=== PATIENT | female | born 1980 | race Caucasian/White ===

== ENCOUNTER 2016-05-27 09:03 | Day surgery (SDC) | payer BC, OTHER ==
[~2016-05-27 09:03] MED LIST: Lactated Ringers 1,000 ML IV SCH; Sodium Chloride 0.9% 10 ML Syringe FLUSH PRN; Sodium Chloride 0.9% 2.5 ML Syringe FLUSH PRN
[2016-05-27] MEDS ORDERED: Bupivacaine 0.25% 10 ML SDV ONE (10:27)
[2016-05-27 10:50] LABS: CHLORIDE,CL 111 mmol/L (98-110); SODIUM,NA 138 mmol/L (136-146)
--- NOTE | 2016-05-27 10:52 | PCM.PREANE ---
Preanesthetic Assessment - Anesthesia/Transfusion/Family Hx Anesthesia History: Prior Anesthesia Without Reaction Type of Anesthesia Reaction: Other (see below) (mild PONV) Family History of Anesthesia Reaction: No Transfusion History: No Prior Transfusion(s) - Review of Systems General: No Symptoms Pulmonary: No Symptoms Cardiovascular: No Symptoms Gastrointestinal: No symptoms Neurological: No Symptoms Other: Reports: None - Physical Assessment NPO Status Date: 05/26/16 NPO Status Time: 23:00 O2 Sat by Pulse Oximetry: 100 Respiratory Rate: 16 Vital Signs: Last Vital Signs Temp 37.5 C 05/27/16 09:49 Pulse 64 05/27/16 09:49 Resp 16 05/27/16 09:49 BP 116/69 05/27/16 09:49 Pulse Ox 100 05/27/16 09:49 Height: 1.6 m Weight: 64.41 kg ASA Class: 2 Mental Status: Alert & Oriented x3 Airway Class: Mallampati = 1 Dentition: Reports: Normal Dentition ROM/Head Extension: Full Lungs: Clear to auscultation, Normal respiratory effort Cardiovascular: Regular Rate, Regular Rhythm - Lab Values: Laboratory Last Values WBC 6.41 K/uL (4.0-11.0) 05/27/16 10:15 RBC 4.65 M/uL (4.30-5.90) 05/27/16 10:15 Hgb 14.6 g/dL (12.0-16.0) 05/27/16 10:15 Hct 42.6 % (36.0-46.0) 05/27/16 10:15 MCV 91.6 fL (80.0-98.0) 05/27/16 10:15 MCH 31.4 pg (27.0-32.0) 05/27/16 10:15 MCHC 34.3 g/dL (31.0-37.0) 05/27/16 10:15 RDW Std Deviation 42.0 fl (28.0-62.0) 05/27/16 10:15 RDW Coeff of Tarsha 13 % (11.0-15.0) 05/27/16 10:15 Plt Count 221 K/uL (150-400) 05/27/16 10:15 MPV 9.40 fL (7.40-12.00) 05/27/16 10:15 Neut % (Auto) 59.2 % (48.0-80.0) 05/27/16 10:15 Lymph % (Auto) 32.8 % (16.0-40.0) 05/27/16 10:15 [place] % (Auto) 3.6 % (0.0-15.0) 05/27/16 10:15 Eos % (Auto) 4.1 % (0.0-7.0) 05/27/16 10:15 Baso % (Auto) 0.3 % (0.0-1.5) 05/27/16 10:15 Neut # (Auto) 3.8 K/uL (1.4-5.7) 05/27/16 10:15 Lymph # (Auto) 2.1 K/uL (0.6-2.4) 05/27/16 10:15 [place] # (Auto) 0.2 K/uL (0.0-0.8) 05/27/16 10:15 Eos # (Auto) 0.3 K/uL (0.0-0.7) 05/27/16 10:15 Baso # (Auto) 0.0 K/uL (0.0-0.1) 05/27/16 10:15 Nucleated RBC % 0.0 /100WBC 05/27/16 10:15 Nucleated RBCs # 0 K/uL 05/27/16 10:15 - Allergies Allergies/Adverse Reactions: Allergies Allergy/AdvReac Type Severity Reaction Status Date / Time No Known Allergies Allergy Verified 05/22/16 15:55 - Anesthesia Plan Pre-Op Medication Ordered: None - Acknowledgements Anesthesia Type Planned: General Anesthesia Pt an Appropriate Candidate for the Planned Anesthesia: Yes Alternatives and Risks of Anesthesia Discussed w Pt/Guardian: Yes Pt/Guardian Understands and Agrees with Anesthesia Plan: Yes Additional Comments: hx of narcolepsy, on Concerta PreAnesthesia Questionnaire HEENT History: Reports: None Cardiovascular History: Reports: None Respiratory History: Reports: None Gastrointestinal History: Reports: None Genitourinary History: Reports: None [employer] History: Reports: None Musculoskeletal History: Reports: None Neurological History: Reports: None Psychiatric History: Reports: None Endocrine/Metabolic History: Reports: None Hematologic History: Reports: None Immunologic History: Reports: None Oncologic (Cancer) History: Reports: None Dermatologic History: Reports: None - Past Surgical History Head Surgeries/Procedures: Reports: None HEENT Surgical History: Reports: None Cardiovascular Surgical History: Reports: None Respiratory Surgical History: Reports: None GI Surgical History: Reports: None Female Surgical History: Reports: Other (see below) Other Female Surgeries/Procedures: right salpingectomy Endocrine Surgical History: Reports: None Neurological Surgical History: Reports: None Musculoskeletal Surgical History: Reports: None Oncologic Surgical History: Reports: None - SUBSTANCE USE Smoking Status *Q: Current Every Day Smoker Tobacco Use Within Last Twelve Months: Cigarettes Recreational Drug Use History: No - HOME MEDS Home Medications: Home Meds ALPRAZolam [Xanax] 0.5 mg PO DAILY PRN MDD 1.5 mg 05/22/16 [History] Methylphenidate HCl [Concerta] 27 mg PO DAILY 05/22/16 [History] buPROPion [Wellbutrin XL] 150 mg PO DAILY 05/22/16 [History] - CURRENT (IN HOUSE) MEDS Current Meds: Current Medications Lactated Ringer's (Ringers, Lactated) 1,000 mls @ 125 mls/hr IV ASDIRECTED [facility] Last Admin: 05/27/16 10:00 Dose: 125 mls/hr Sodium Chloride (Saline Flush) 10 ml FLUSH ASDIRECTED PRN PRN Reason: Keep Vein Open Sodium Chloride (Saline Flush) 2.5 ml FLUSH ASDIRECTED PRN PRN Reason: Keep Vein Open Discontinued Medications Bupivacaine HCl (Sensorcaine-Mpf 0.25%) Confirm Administered Dose 20 ml .ROUTE .STK-MED ONE Stop: 05/27/16 10:28 Preanesthetic Assessment - ANESTHESIA/TRANSFUSION/FAMILY HX Family History of Anesthesia Reaction: No - PHYSICAL ASSESSMENT O2 Sat by Pulse Oximetry: 100 RR: 16 Vital Signs: Last Vital Signs Temp 37.5 C 05/27/16 09:49 Pulse 64 05/27/16 09:49 Resp 16 05/27/16 09:49 BP 116/69 05/27/16 09:49 Pulse Ox 100 05/27/16 09:49 Height: 1.6 m Weight: 64.41 kg NPO Status Date: 05/26/16 NPO Status Time: 23:00 - LAB Values: Laboratory Last Values WBC 6.41 K/uL (4.0-11.0) 05/27/16 10:15 RBC 4.65 M/uL (4.30-5.90) 05/27/16 10:15 Hgb 14.6 g/dL (12.0-16.0) 05/27/16 10:15 Hct 42.6 % (36.0-46.0) 05/27/16 10:15 MCV 91.6 fL (80.0-98.0) 05/27/16 10:15 MCH 31.4 pg (27.0-32.0) 05/27/16 10:15 MCHC 34.3 g/dL (31.0-37.0) 05/27/16 10:15 RDW Std Deviation 42.0 fl (28.0-62.0) 05/27/16 10:15 RDW Coeff of Tarsha 13 % (11.0-15.0) 05/27/16 10:15 Plt Count 221 K/uL (150-400) 05/27/16 10:15 MPV 9.40 fL (7.40-12.00) 05/27/16 10:15 Neut % (Auto) 59.2 % (48.0-80.0) 05/27/16 10:15 Lymph % (Auto) 32.8 % (16.0-40.0) 05/27/16 10:15 [place] % (Auto) 3.6 % (0.0-15.0) 05/27/16 10:15 Eos % (Auto) 4.1 % (0.0-7.0) 05/27/16 10:15 Baso % (Auto) 0.3 % (0.0-1.5) 05/27/16 10:15 Neut # (Auto) 3.8 K/uL (1.4-5.7) 05/27/16 10:15 Lymph # (Auto) 2.1 K/uL (0.6-2.4) 05/27/16 10:15 [place] # (Auto) 0.2 K/uL (0.0-0.8) 05/27/16 10:15 Eos # (Auto) 0.3 K/uL (0.0-0.7) 05/27/16 10:15 Baso # (Auto) 0.0 K/uL (0.0-0.1) 05/27/16 10:15 Nucleated RBC % 0.0 /100WBC 05/27/16 10:15 Nucleated RBCs # 0 K/uL 05/27/16 10:15 - ALLERGIES Allergies/Adverse Reactions: Allergies Allergy/AdvReac Type Severity Reaction Status Date / Time No Known Allergies Allergy Verified 05/22/16 15:55
[2016-05-27] MEDS ORDERED: fentaNYL 250 MCG/5 ML SDV ONE (10:58)
[2016-05-27] MEDS ORDERED: Midazolam 1 MG/ML 2 ML SDV ONE (10:58)
[2016-05-27] MEDS ORDERED: Ondansetron 4 MG/2 ML SDV ONE (10:58)
[2016-05-27] MEDS ORDERED: Propofol 200 MG/20 ML SDV ONE (10:58)
[2016-05-27] MEDS ORDERED: Lidocaine 2% 5 ML SDV ONE (10:58)
[2016-05-27] MEDS ORDERED: Rocuronium 10 MG/ML 10 ML Syringe ONE (10:58)
[2016-05-27] MEDS ORDERED: Fluorescein 5 ML Vial ONE (11:10)
[2016-05-27] MEDS ORDERED: Promethazine 12.5 MG Supp RECTAL PRN (12:59)
[2016-05-27] MEDS ORDERED: fentaNYL 100 MCG/2 ML SDV IVPUSH PRN (12:59)
[2016-05-27] MEDS ORDERED: HYDROmorphone 2 MG/ML Syringe ONE (13:36)
[2016-05-27] MEDS ORDERED: diphenhydrAMINE 50 MG/ML SDV ONE (13:52)
[2016-05-27] MEDS ORDERED: Dexamethasone 4 MG/ML 5 ML MDV ONE (13:52)
[2016-05-27] MEDS ORDERED: Ketorolac 30 MG/ML SDV IVPUSH PRN (14:44)
[2016-05-27] MEDS ORDERED: Acetaminophen/oxyCODONE 325-5 MG Tab PO PRN (14:45)
--- NOTE | 2016-05-27 14:58 | PCM.POSTAN ---
POST ANESTHESIA ASSESSMENT - MENTAL STATUS Mental Status: alert, oriented - RESPIRATORY Respiratory Status: respiratory rate WNL, airway patent, O2 saturation stable - CARDIOVASCULAR CV Status: pulse rate WNL, blood pressure stable - GASTROINTESTINAL GI Status: no symptoms - POST OP HYDRATION Hydration Status: adequate & stable
--- NOTE | 2016-05-27 14:59 | PCM.OPNOTE ---
- General Post-Op/Procedure Note Date of Surgery/Procedure: 05/27/16 Operative Procedure(s): Diagnostic laparoscopy. Adhesolysis. Removal of left ovary and tube. Placement of interceed Findings: Left colon adhesed to post uterus. Right ovary normal appearing but retroperitoneal. Left hydrosalpinx. Left ovary with multiple simple appearing cyst almost with appearance of distorted multicystic left ovary Pre Op Diagnosis: Left sided pelvic pain. Left hydrosalpinx Post-Op Diagnosis: Same. Moderate pelvic adhesions. Distorted multicystic left ovary. Left ovary and tube densely adhesed Anesthesia Technique: General ET tube Primary Surgeon: Violet Mullins Pathology: left tube and ovary Fluid Replacement, Intraop: 2,500 EBL in mLs: 10 Complications: Laceration of cervix with tenaculum Condition: Good Free Text/Narrative:: Intake & Output 05/26/16 05/27/16 05/27/16 22:59 06:59 14:59 Output Total 20 Balance -20 Job ID#[id number]
[2016-05-27 16:57] VITALS: BP 116/70
--- NOTE | 2016-05-27 17:23 | PCM48HPAN ---
Post Anesthesia Note - EVALUATION WITHIN 48HRS OF ANESTHETIC Vital Signs in Normal Range: Yes Patient Participated in Evaluation: Yes Respiratory Function Stable: Yes Airway Patent: Yes Cardiovascular Function Stable: Yes Hydration Status Stable: Yes Pain Control Satisfactory: Yes Nausea and Vomiting Control Satisfactory: Yes Mental Status Recovered: Yes
--- NOTE | 2016-05-29 15:01 | OR ---
SURGEON: Violet Mullins DATE OF PROCEDURE: 05/27/2016 PREOPERATIVE HISTORY: This is a 35-year-old female with complaints of pelvic pain. The patient has pelvic pain mostly in the left lower quadrant. The patient underwent imaging studies and was found to have a hydrosalpinx on the left. The patient reports no significant history concerning for endometriosis, adenomyosis, or pelvic infections. As the patient was concerned about left-sided pelvic pain and needing to remove the hydrosalpinx, the patient desired to undergo surgical intervention with a diagnostic laparoscopy and removal of the hydrosalpinx. Prior to procedure, the patient was apprised of the risk of procedure being bleeding, infection, poor wound healing, possible damage to the bowel, bladder, ureters, nerves, blood vessels, or any other adjacent structures. Also it was discussed with patient the risk of general anesthesia and risk of thromboembolic disease. The patient also noted that the risks of possible removal of one or both ovaries if they appear concerning at the time of surgery. Knowing all of the above, the patient still gave consent and signed appropriate consents. PREOPERATIVE DIAGNOSES: 1. Left-sided pelvic pain. 2. Left hydrosalpinx. POSTOPERATIVE DIAGNOSES: 1. Left-sided pelvic pain. 2. Hydrosalpinx. 3. Moderate adhesions. 4. Distorted multicystic left ovary. 5. Left ovary and tube densely adhesed to one another. PROCEDURES PERFORMED: 1. Diagnostic laparoscopy. 2. Adhesiolysis. 3. Removal of left ovary and tube. 4. Placement of Interceed. ANESTHESIA: General endotracheal. ESTIMATED BLOOD LOSS: Approximately 10 mL. FLUIDS: In the OR was 2500 mL of crystalloid. COMPLICATIONS: None known. CONDITION: Good postoperatively. The patient did have her bladder emptied prior to start of procedure with a straight catheter. DESCRIPTION OF PROCEDURE: The patient was taken to the operating room with Venodynes on and in place. The patient was then transferred to the operating room bed. Venodynes were then connected. The patient then underwent general anesthesia with endotracheal intubation. The patient was then placed in the dorsal lithotomy position in the [facility]. Of note, prior to the induction of anesthesia, the Venodynes were active. After [facility], the patient was positioned and the patient was then prepped and draped in the normal sterile fashion. The patient was examined under anesthesia and found to have a normal size what was felt to be anteverted uterus and ovaries felt, palpated, essentially normal on exam though the mass on the left was palpated slightly larger. Afterwards, the patient was then prepped and draped. A speculum was placed in the patient's vagina and a Hulka clamp was placed through the cervical canal and attached to the anterior lip of the cervix. The speculum was removed from the patient's vagina. Gloves were changed and attention then was turned to the patient's abdomen. Where a 5 mm incision was made in the umbilical fold. A Veress needle then was placed in the patient's abdomen at a 90-degree angle, and with the fluid meniscus drop, intraperitoneal placement was noted after 2 pops after placing the Veress needle. The patient's abdomen was insufflated with low opening pressures to again note that intraabdominal placement was correct at this point. After insufflation of the patient's abdomen, a 5 mm trocar and sleeve were then advanced under direct visualization. The trocar was removed and the scope was advanced into the patient's abdomen for direct visualization. The patient was placed in Trendelenburg position. There was difficulty initially trying to identify the uterus secondary to not being able to see it. Once it was noted that the uterus was moving under the bowel it was thought at this point that the bowel was adhesed to the patient's uterus. At this point, a 5 mm trocar and sleeve were then advanced under direct visualization. After infiltration of the skin with local anesthetic. Attention then was turned to the right lower quadrant where the patient had previously had laparoscopic surgery and a 12 mm incision was then made in the skin and then a 12 mm trocar and sleeve were then advanced under direct visualization. At this point, a survey of the patient's abdomen revealed that at this point initially the right ovary was not visualized. The uterus was poorly visualized as it was covered in bowel secondary to the left colon being adhesed to the left adnexa and the posterior surface of the uterus. Attention was turned to the patient's upper abdomen where there was a smooth liver edge. Attention then was turned back to the patient's pelvis and secondary to the significant adhesive disease in the patient's pelvis. A Harmonic instrument with advanced hemostasis was used. The uterus was directed up out of the pelvis and with gentle tension the left colon adhesion was gently taken down with the Harmonic and also with some blunt dissection. Most of the adhesions were noted to be dense and careful attention was used to take the adhesions down secondary to the bowel being in close proximity as it was adhesed with the entire posterior surface of the uterus. With an excellent dissection plane the fundal area was covered and that was attached to the colon was released within the posterior surface in a good dissection plane. The adhesions were released with the Harmonic and also with blunt dissection. The left adnexa was eventually released from the left colon. After removal of adhesions, hemostasis apparently looked decent on the posterior surface of the uterus. At this point, it was attempted to separate the left tube from the left ovary which looked almost impossible. The left ovary and tube were densely adhesed to one another. The left ovary was eventually mobilized. The left ovary appeared distorted and multicystic, but there were no excrescences or vegetations on the ovarian capsule. Ovarian capsule did appear smooth and cyst appeared simple in nature. Prior to the decision to remove the left ovary as it was noted that the left ovary and tube were densely adhesed to one another and the left ovary was significantly distorted, it was decided at this point, that the left ovary and tube would be removed. Attention then was turned to the patient's right adnexa where the right ovary was attempted to be identified. The right ovary was partially identified and there appeared the remainder of the right ovary was noted to be retroperitoneal on the right pelvic sidewall. The ureter was not identified on the right, but the ureter was identified on the left, where the infundibulopelvic ligament was eventually later identified. Once it was noted that the left ureter was diving deep into the pelvis and away from the ovarian fossa and the infundibulopelvic ligament, the infundibulopelvic ligament was grasped, sealed, and divided and multiple bites with the Harmonic on advanced hemostasis. After completely dividing the infundibulopelvic ligament, the ovary and tube were removed after grasping, sealing, and dividing the utero- ovarian ligament. The final grasp with the Harmonic Scalpel was the cornual portion of the tube which was grasped, sealed, and divided. After completely the left adnexa, the EndoCatch bag was deployed through the right lower quadrant port site. The left ovary and tube were removed en bloc in the EndoCatch bag. The trocar and sleeve were then placed back after removing the EndoCatch bag. Attention was turned to the surgical bed, where the pelvis was copiously irrigated. Hemostasis was noted to be excellent on the left pelvic sidewall. There were small bleeders on the uterus, where the adhesions have been taken down bluntly. These areas were made hemostatic with the active Harmonic blade. The pelvis was copiously irrigated again. Hemostasis was noted to be excellent. The right ovary portion that could be seen that was not retroperitoneal was visualized and noted to be within normal limits. After complete inspection and turning the pressure of the gas down, hemostasis still noted to be good, after removing all excess fluid from the patient's pelvis a piece of Interceed was introduced into the pelvic cavity. The Interceed was placed from the uterine fundus to cover the entire posterior of the uterus and also the left adnexa just in case these adhesions were secondary to prior history of just one salpingectomy. Of note, the patient did have prior pelvic surgery, which included what she stated was a laparoscopic salpingectomy. Of course, the uterus was noted to be normal appearing and the right tube was not present secondary to patient's surgical history. After the Interceed was placed, the patient was taken out of Trendelenburg. Gas was turned off. Gas was released and the instruments in the left lower quadrant and right lower quadrant were removed under direct visualization. The excess gas was allowed to escape and the umbilical port site was removed. After removing all instruments from the patient's abdomen, 4-0 Monocryl suture was used to close the laparoscopic skin incisions. It was attempted to close the fascia of the 12 mm port site with an 0 Vicryl on a UR needle. This was done with one stitch and the overlying skin was closed with 4- 0 Monocryl suture. The patient's was cleansed. Steri-Strips were placed. The patient's abdomen was cleansed after drapes were taken down. The patient's cervix was evaluated and was noted to be laceration from the tenaculum that was placed that was made hemostatic with silver nitrate sticks. The patient overall tolerated the procedure well. Sponge, lap, needle, and instrument counts were correct. NEWJEANEOL / MODL /[id number] RHIANNA
== END 2016-05-27 16:50 | disposition home or self-care (01) ==
LOC: MW.SDS 09:03
PROVIDERS: ATTEND Obstetrics & Gynecology
PROC: 0UB14ZZ Excision of Left Ovary, Percutaneous Endoscopic Approach (ICD-10-PCS; principal; 2016-05-27)
PROC: 0UB64ZZ Excision of Left Fallopian Tube, Percutaneous Endoscopic Approach (ICD-10-PCS; 2016-05-27)
DX: N70.11 Chronic salpingitis (principal); D27.1 Benign neoplasm of left ovary; N99.4 Postprocedural pelvic peritoneal adhesions; G47.419 Narcolepsy without cataplexy; F17.210 Nicotine dependence, cigarettes, uncomplicated
CPT/HCPCS: 36415; 58661; 80048; 84703; 85025; 86850; 86900; 86901; 88305; A9270; C1765; J1100; J1170; J1200; J2250; J2405; J3010; J7120; 00840; J2704

== ENCOUNTER 2017-03-03 10:57 | Day surgery (SDC) | payer BC, MEDICAID ==
[~2017-03-03 10:57] MED LIST changes: -Sodium Chloride 0.9% 10 ML Syringe FLUSH PRN; -Sodium Chloride 0.9% 2.5 ML Syringe FLUSH PRN
--- NOTE | 2017-03-03 11:41 | PCM.PREANE ---
Preanesthetic Assessment - Anesthesia/Transfusion/Family Hx Anesthesia History: Prior Anesthesia Without Reaction Family History of Anesthesia Reaction: No Transfusion History: No Prior Transfusion(s) - Review of Systems General: No Symptoms Pulmonary: No Symptoms Cardiovascular: No Symptoms Gastrointestinal: No Symptoms Neurological: No Symptoms Other: Reports: None - Physical Assessment Height: 1.63 m Weight: 58.967 kg ASA Class: 2 Mental Status: Alert & Oriented x3 Airway Class: Mallampati = 2 Dentition: Reports: Normal Dentition ROM/Head Extension: Full Lungs: Clear to Auscultation, Normal Respiratory Effort Cardiovascular: Regular Rate, Regular Rhythm - Allergies Allergies/Adverse Reactions: Allergies Allergy/AdvReac Type Severity Reaction Status Date / Time No Known Allergies Allergy Verified 02/25/17 13:42 - Anesthesia Plan Pre-Op Medication Ordered: None - Acknowledgements Anesthesia Type Planned: MAC Pt an Appropriate Candidate for the Planned Anesthesia: Yes Alternatives and Risks of Anesthesia Discussed w Pt/Guardian: Yes Pt/Guardian Understands and Agrees with Anesthesia Plan: Yes PreAnesthesia Questionnaire HEENT History: Reports: None Cardiovascular History: Reports: None Respiratory History: Reports: None Gastrointestinal History: Reports: None Genitourinary History: Reports: None SERVICE ASSOCIATE History: Reports: None Musculoskeletal History: Reports: None Neurological History: Reports: None Psychiatric History: Reports: Anxiety, Depression, Other (See Below) Other Psychiatric History: Narcolepsy Endocrine/Metabolic History: Reports: None Hematologic History: Reports: None Immunologic History: Reports: None Oncologic (Cancer) History: Reports: None Dermatologic History: Reports: None - Past Surgical History GI Surgical History: Reports: Appendectomy Female Surgical History: Reports: Salpingo-Oophorectomy - SUBSTANCE USE Smoking Status *Q: Current Every Day Smoker Tobacco Use Within Last Twelve Months: Cigarettes Recreational Drug Use History: No - HOME MEDS Home Medications: Home Meds ALPRAZolam [Xanax] 0.5 mg PO DAILY PRN MDD 1.5 mg 05/22/16 [History] Methylphenidate HCl [Concerta] 36 mg PO DAILY 05/22/16 [History] buPROPion [Wellbutrin XL] 150 mg PO DAILY 05/22/16 [History] - CURRENT (IN HOUSE) MEDS Current Meds: Current Medications Lactated Ringer's (Ringers, Lactated) 1,000 mls @ 125 mls/hr IV ASDIRECTED [facility] Last Admin: 03/03/17 11:32 Dose: 125 mls/hr
[2017-03-03] MEDS ORDERED: fentaNYL 100 MCG/2 ML SDV ONE (12:07)
[2017-03-03] MEDS ORDERED: Propofol 200 MG/20 ML SDV ONE (12:07)
[2017-03-03] MEDS ORDERED: Midazolam 1 MG/ML 2 ML SDV ONE (12:07)
--- NOTE | 2017-03-03 13:00 | PCM.OPNOTE ---
- General Post-Op/Procedure Note Date of Surgery/Procedure: 03/03/17 Operative Procedure(s): colonoscopy, attempted Findings: unprepped bowel, colonoscope aborted; [id number] Pre Op Diagnosis: BRBPR Post-Op Diagnosis: Same Anesthesia Technique: Moderate Sedation Primary Surgeon: Long Drake Complications: None Condition: Good
--- NOTE | 2017-03-03 13:16 | PCM.POSTAN ---
POST ANESTHESIA ASSESSMENT - MENTAL STATUS Mental Status: Alert, Oriented - RESPIRATORY Respiratory Status: Respiratory Rate WNL, Airway Patent, O2 Saturation Stable - CARDIOVASCULAR CV Status: Pulse Rate WNL, Blood Pressure Stable - GASTROINTESTINAL GI Status: No Symptoms - PAIN Pain Score: 0 - POST OP HYDRATION Hydration Status: Adequate & Stable
[2017-03-03 13:27] VITALS: BP 90/55
--- NOTE | 2017-03-03 13:32 | PCM48HPAN ---
Post Anesthesia Note - EVALUATION WITHIN 48HRS OF ANESTHETIC Vital Signs in Normal Range: Yes Patient Participated in Evaluation: Yes Respiratory Function Stable: Yes Airway Patent: Yes Cardiovascular Function Stable: Yes Hydration Status Stable: Yes Pain Control Satisfactory: Yes Nausea and Vomiting Control Satisfactory: Yes Mental Status Recovered: Yes - COMMENTS/OBSERVATIONS Free Text/Narrative:: No apparent anesthesia complications.
--- NOTE | 2017-03-03 13:59 | OR ---
SURGEON: Long Drake MD DATE OF PROCEDURE: 03/03/2017 PREOPERATIVE DIAGNOSIS: Bright red blood per rectum and abdominal pain. POSTOPERATIVE DIAGNOSIS: Attempted colonoscopy abort because of unprepped bowel and observed a 5 mm sessile polyp at distance 15 cm, snared and captured and sent for pathology. PROCEDURE PERFORMED: Attempted colonoscopy and snare polypectomy. PROCEDURE IN DETAILS: Attempted colonoscopy: The patient was taken to the endoscopy room. A time out was called, patient identified, and procedure identified. Diprivan was then administrated. Patient went from awake to sleep, hearing doctor talking or door closing is normal. Perineum inspection and digital examination were then performed. A well-lubricated colonoscope was gently inserted through the rectum, encountered large amt of solid well formed stool; With irrigation and manuver to avoid the stool; scope advanced past the rectosigmoid junction, the descending colon, splenic flexure, transverse colon, encountered more well formed stool, irrigation cannot pushed it out, and deemed unsafe to proceed, aborted at 100 cm scope tamika, sucked air out during the scope withdrawal. At about 15 cm, there is a sessile 5 mm polyp, snared and captured; At the rectum, retroflexed to examine any rectal diseases, fistula or hemorrhoids. Patient tolerated procedure well. There were no intraoperative complications, and Dr. Drake was present throughout the whole procedure. FINDINGS: 1. The patient is easily sedated with [employer]INE[employer] and Diprivan. The patient is soundly snoring. 2. Solid stool, chunks of it throughout the whole colon. Attempt to colonoscopy all the way to 1 m at transverse colon, deemed unsafe to proceed and stopped. At 15 cm when scope coming out, there was a 5 mm sessile polyp, removed by snare polypectomy and captured and sent for pathology. On examination, the patient had external hemorrhoid at 12 o'clock and four- column internal hemorrhoids. PLAN: The patient would benefit with a repeat colonoscopy in 6-12 months for a bright red blood per rectum and the patient will proceed with hemorrhoidectomy. FAREED / BAUTISTA /[id number] RHIANNA
== END 2017-03-03 13:40 | disposition home or self-care (01) ==
LOC: MW.SDS 10:57
PROVIDERS: ATTEND Surgery
DX: D12.6 Benign neoplasm of colon, unspecified (principal); K64.8 Other hemorrhoids; K64.4 Residual hemorrhoidal skin tags; F41.9 Anxiety disorder, unspecified; F32.9 Major depressive disorder, single episode, unspecified; Z90.49 Acquired absence of other specified parts of digestive tract; F17.210 Nicotine dependence, cigarettes, uncomplicated
CPT/HCPCS: 45385; 81025; J2250; J3010; J7120; 00811; 88305; J2704

== ENCOUNTER 2017-04-02 11:10 | Day surgery (SDC) | payer MEDICAID ==
[~2017-04-02 11:10] MED LIST changes: +Bupivacaine 25%/EPINEPHrine/PF 0 ML ONE; +Gelatin Sponge,Absorbable 12-7 mm Sponge TOP ONE; +Lidocaine 2% Jelly 30 ML Tube ONE; +ceFAZolin 2 GM in Premix Bag 1 BAG IV ONE
--- NOTE | 2017-04-02 11:53 | PCM.PREANE ---
Preanesthetic Assessment - Anesthesia/Transfusion/Family Hx Anesthesia History: Prior Anesthesia Without Reaction Family History of Anesthesia Reaction: No Transfusion History: No Prior Transfusion(s) - Review of Systems General: No Symptoms Pulmonary: No Symptoms Cardiovascular: No Symptoms Gastrointestinal: No Symptoms Neurological: No Symptoms Other: Reports: None - Physical Assessment NPO Status Date: 04/01/17 Height: 1.63 m Weight: 61.689 kg ASA Class: 2 Mental Status: Alert & Oriented x3 Airway Class: Mallampati = 1 Dentition: Reports: Normal Dentition ROM/Head Extension: Full Lungs: Clear to Auscultation, Normal Respiratory Effort Cardiovascular: Regular Rate, Regular Rhythm - Lab Values: Laboratory Last Values Urine HCG, Qual NEGATIVE (NEGATIVE) 04/02/17 11:16 - Allergies Allergies/Adverse Reactions: Allergies Allergy/AdvReac Type Severity Reaction Status Date / Time No Known Allergies Allergy Verified 03/17/17 13:05 - Acknowledgements Anesthesia Type Planned: General Anesthesia Pt an Appropriate Candidate for the Planned Anesthesia: Yes Alternatives and Risks of Anesthesia Discussed w Pt/Guardian: Yes Pt/Guardian Understands and Agrees with Anesthesia Plan: Yes Additional Comments: PLAN: GET, prone PreAnesthesia Questionnaire HEENT History: Reports: None Cardiovascular History: Reports: None Respiratory History: Reports: None Gastrointestinal History: Reports: Hemorrhoids Genitourinary History: Reports: None MACHINE REBUILDER 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: 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: 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 Musculoskeletal History: Reports: None Neurological History: Reports: None Psychiatric History: Reports: Anxiety, Depression, Other (See Below) Other Psychiatric History: Narcolepsy Endocrine/Metabolic History: Reports: None Hematologic History: Reports: None Immunologic History: Reports: None Oncologic (Cancer) History: Reports: None Dermatologic History: Reports: None - Past Surgical History Head Surgeries/Procedures: Reports: None HEENT Surgical History: Reports: None Cardiovascular Surgical History: Reports: None Respiratory Surgical History: Reports: None GI Surgical History: Reports: Appendectomy, Colonoscopy Female Surgical History: Reports: Salpingo-Oophorectomy, Tubal Ligation Other Female Surgeries/Procedures: right salpingectomy Endocrine Surgical History: Reports: None Neurological Surgical History: Reports: None Musculoskeletal Surgical History: Reports: None Oncologic Surgical History: Reports: None - SUBSTANCE USE Smoking Status *Q: Current Every Day Smoker Tobacco Use Within Last Twelve Months: Cigarettes Recreational Drug Use History: No - HOME MEDS Home Medications: Home Meds ALPRAZolam [Xanax] 0.5 mg PO DAILY PRN MDD 1.5 mg 05/22/16 [History] Methylphenidate HCl [Concerta] 36 mg PO DAILY 05/22/16 [History] buPROPion [Wellbutrin XL] 150 mg PO DAILY 05/22/16 [History] traMADol HCl [Tramadol HCl] 50 mg PO Q6H PRN 03/17/17 [History] - CURRENT (IN HOUSE) MEDS Current Meds: Current Medications Lactated Ringer's (Ringers, Lactated) 1,000 mls @ 125 mls/hr IV ASDIRECTED GILDA Discontinued Medications Gelatin (Gelfoam 12-7 Mm) Confirm Administered Dose 1 each TOP .STK-MED ONE Stop: 03/19/17 07:44 Gelatin (Gelfoam 12-7 Mm) Confirm Administered Dose 1 each TOP .STK-MED ONE Stop: 04/02/17 10:12 Lactated Ringer's (Ringers, Lactated) 1,000 mls @ 125 mls/hr IV ASDIRECTED GILDA Cefazolin Sodium/Dextrose 2 gm (/ Premix) 50 mls @ 100 mls/hr IV ONETIME ONE Stop: 03/19/17 05:29 Bupivacaine HCl/Epinephrine Bitart (Sensorc Mpf 0.25%-Epi [id number]) Confirm Administered Dose 30 mls @ as directed .ROUTE .STK-MED ONE Stop: 03/19/17 07:45 Cefazolin Sodium/Dextrose 2 gm (/ Premix) 50 mls @ 100 mls/hr IV ONETIME ONE Stop: 04/02/17 03:55 Lidocaine HCl (Xylocaine 2% Jelly) Confirm Administered Dose 30 ml .ROUTE .STK- MED ONE Stop: 03/19/17 07:44
[2017-04-02] MEDS ORDERED: Bupivacaine 25%/EPINEPHrine/PF 30 ML ONE (12:43)
[2017-04-02] MEDS ORDERED: Lidocaine 2% 5 ML SDV ONE (12:49)
[2017-04-02] MEDS ORDERED: Midazolam 1 MG/ML 2 ML SDV ONE (12:50)
[2017-04-02] MEDS ORDERED: fentaNYL 100 MCG/2 ML SDV ONE (12:50)
[2017-04-02] MEDS ORDERED: Propofol 200 MG/20 ML SDV ONE (12:50)
[2017-04-02] MEDS ORDERED: Acetaminophen/HYDROcodone 325-5 MG Tab PO PRN (12:54)
--- NOTE | 2017-04-02 14:05 | PCM.OPNOTE ---
- General Post-Op/Procedure Note Date of Surgery/Procedure: 04/02/17 Operative Procedure(s): hemorrhoidectomy Findings: large ext/int hemorrhoid at 12 oclock when prone was excised; see dict [id number] Pre Op Diagnosis: hemorrhoid Post-Op Diagnosis: Same Anesthesia Technique: General ET Tube Primary Surgeon: Long Drake Pathology: hemorrhoid Complications: None Condition: Good
[2017-04-02] MEDS ORDERED: fentaNYL 100 MCG/2 ML SDV IVPUSH PRN (14:08)
[2017-04-02] MEDS ORDERED: HYDROmorphone 2 MG/ML Syringe IVPUSH ONE (14:08)
--- NOTE | 2017-04-02 14:45 | PCM.POSTAN ---
POST ANESTHESIA ASSESSMENT - MENTAL STATUS Mental Status: Alert, Oriented - RESPIRATORY Respiratory Status: Respiratory Rate WNL, Airway Patent, O2 Saturation Stable - CARDIOVASCULAR CV Status: Pulse Rate WNL, Blood Pressure Stable - GASTROINTESTINAL GI Status: No Symptoms - POST OP HYDRATION Hydration Status: Adequate & Stable
--- NOTE | 2017-04-02 16:03 | PCM48HPAN ---
Post Anesthesia Note - EVALUATION WITHIN 48HRS OF ANESTHETIC Vital Signs in Normal Range: Yes Patient Participated in Evaluation: Yes Respiratory Function Stable: Yes Airway Patent: Yes Cardiovascular Function Stable: Yes Hydration Status Stable: Yes Pain Control Satisfactory: Yes Nausea and Vomiting Control Satisfactory: Yes Mental Status Recovered: Yes - COMMENTS/OBSERVATIONS Free Text/Narrative:: Disc, 1554 hrs. Patient satisfied with analgesia
[2017-04-02 16:24] VITALS: BP 108/58
--- NOTE | 2017-04-02 20:26 | OR ---
SURGEON: ARCHIE VELAZCO MD DATE OF PROCEDURE: 04/02/2017 PREOPERATIVE DIAGNOSIS: Dysphagia, encephalopathy. POSTOPERATIVE DIAGNOSIS: Dysphagia, encephalopathy. PROCEDURE PERFORMED: Percutaneous endoscopic gastrostomy tube placement. PRIMARY SURGEON: Long Drake MD. BLOWER ROOM ATTENDANT: Archie Velazco MD. ANESTHESIA: General endotracheal anesthesia. FLUIDS: See anesthesia record. ESTIMATED BLOOD LOSS: 5 mL. FINDINGS: Antral gastric ulcer, PEG tube placement at 4.5 cm of the skin. COMPLICATIONS: None. INDICATIONS: Please see Dr. Drake's note for full details of the indications for this procedure. 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 I was asked to assist Dr. Drake in this case. PROCEDURE IN DETAIL: The patient was brought into the OR and was kept in the OR cart in supine position. Time-out was completed by Dr. Drake verifying the patient's name, age, date of , allergies, and procedure to be performed. General endotracheal anesthesia was induced. The patient was then placed in a beach chair position. Dr. Drake performed the endoscopic portion of the case. Please see his note for further details. Once the stomach had been inflated, we were able to identify and transilluminate from the stomach on to the epigastric portion of the abdominal wall. We were able to palpate into the antrum through the abdominal wall. The upper abdomen was prepped and draped in the usual standard fashion. I passed a lidocaine needle from the abdominal wall into the stomach which was visualized via the scope. I anesthetized the skin overlying this area with 1% lidocaine with epinephrine. A 1 cm incision was made with an 11 blade. A guide needle was then placed through the incision into the stomach with direct visualization through the endoscope. The needle was removed and a guidewire was placed down the vascular sheath. The guidewire was then grasped via the endoscope and pulled out through the mouth. The feeding tube was looped around this guidewire and pulled back down through the stomach so that the bumper of the feeding tube would flush against the skin. This was at a level of 4.5 cm on the abdominal wall. A bumper was put into place and secured to the abdominal wall with interrupted 2-0 Vicryl sutures. The patient tolerated the procedure well. Please see Dr. Drake's note for further details. LEMKEVINH / MODL /[id number]
--- NOTE | 2017-04-02 20:26 | OR ---
SURGEON: Long Drake MD DATE OF PROCEDURE: 04/02/2017 PREOPERATIVE DIAGNOSIS: Hemorrhoid. POSTOPERATIVE DIAGNOSIS: Hemorrhoid. PROCEDURE PERFORMED: Hemorrhoidectomy. COMPLICATIONS: None. FINDINGS: Previous seen in office a large internal hemorrhoid has regressed, only left behind is a small internal hemorrhoid with one large external hemorrhoid, and the large internal hemorrhoid and large external hemorrhoid at 12 o'clock when in prone position was excised. PROCEDURE PERFORMED IN DETAIL: The patient was taken to the operating room and placed in a supine position. Upon induction of general endotracheal anesthesia, the patient was repositioned into a jackknife position. Time-out was being called. The patient was identified, procedure identified, and antibiotic given. Procedure was then started. Tape was used to aid in exposure and the patient was then prepped and draped in a sterile fashion. First three finger dilatation and following a speculum examination, the previous seen large 360-degree internal hemorrhoid disappeared or regressed, left behind is one large external hemorrhoid, one large internal hemorrhoid right at 12 o'clock area. Using a Keri, the hemorrhoid was grabbed and hemostasis stitches using 3-0 chromic was put at the tip with a Keri and then using a harmonic, the hemorrhoid was excised and sent for pathology. The mucosal defect was repaired by the use of 3-0 chromic and after finished, some lidocaine was injected in the area for pain relief and a Gel-Foam was put in the rectum for pain tissue. The patient was then repositioned in the supine position, awakened, extubated, and transferred to recovery room in hemodynamically stable condition. The patient tolerated the procedure well. There were no intraoperative complications. Dr. Drake was present through the whole procedure. FAREED / BAUTISTA /[id number]
== END 2017-04-02 16:15 | disposition home or self-care (01) ==
LOC: MW.SDS 11:10
PROVIDERS: ATTEND Surgery
DX: K64.8 Other hemorrhoids (principal); K64.4 Residual hemorrhoidal skin tags; G93.40 Encephalopathy, unspecified; R13.10 Dysphagia, unspecified; F41.9 Anxiety disorder, unspecified; F17.210 Nicotine dependence, cigarettes, uncomplicated; F32.9 Major depressive disorder, single episode, unspecified; Z79.899 Other long term (current) drug therapy; Z90.49 Acquired absence of other specified parts of digestive tract; Z90.721 Acquired absence of ovaries, unilateral; Z98.51 Tubal ligation status
CPT/HCPCS: 46255; 49440; 81025; A9270; J2250; J3010; J7120; 00902; 88304; J2704

== ENCOUNTER 2017-06-29 14:34 | Emergency (ER) | payer OTHER ==
[2017-06-29] MEDS ORDERED: Ketorolac 60 MG/2 ML SDV IM ONE (15:21)
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
[2017-06-29 18:24] VITALS: BP 122/73
--- NOTE | 2017-06-29 19:04 | CR ---
EXAM DATE: 06/29/17 PATIENT'S AGE: 36 Patient: LAUREN KRAUS Facility: [place], [place] Site . Site : 1980 Study: XRay Shoulder Left Clavicle [id number]/30/2018 3:58:18 PM Ordering Physician: Doctor Blanchard Final Report: INDICATION: PAIN TECHNIQUE: Left clavicular series COMPARISON: June 23, 2017 FINDINGS/IMPRESSION: Bones: Stable comminuted overriding displaced left midclavicular fracture. No significant interval healing. No new findings.. Joint spaces: Unremarkable. Soft tissues: Unremarkable. Dictated by Torres Marlow MD @ 06/29/2017 4:28:04 PM Dictated by: Torres Marlow MD @ 06/29/2017 16:28:11 (Electronic Signature) Report Signed by Proxy. RHIANNA
--- NOTE | 2017-06-29 19:05 | CR ---
EXAM DATE: 06/29/17 PATIENT'S AGE: 36 Patient: LAUREN KRAUS Facility: [place], [place] Site . Site : 1980 Study: XRay Shoulder Left [id number] 3:59:03 PM Ordering Physician: Doctor Blanchard Final Report: INDICATION: PAIN TECHNIQUE: Three views of the left shoulder COMPARISON: Left clavicular series performed June 23, 2017 FINDINGS/IMPRESSION: Bones: Stable comminuted overriding displaced left midclavicular fracture. Joint spaces: Unremarkable. Soft tissues: Unremarkable. Dictated by Torres Marlow MD @ 06/29/2017 4:29:21 PM Dictated by: Torres Marlow MD @ 06/29/2017 16:29:29 (Electronic Signature) Report Signed by Proxy. [facility] MEDICAL CENTERLindsey
== END 2017-06-29 16:55 | disposition home or self-care (01) ==
LOC: MW.ED 14:34
DX: S42.022A Displaced fracture of shaft of left clavicle, initial encounter for closed fracture (principal); F17.210 Nicotine dependence, cigarettes, uncomplicated; Z79.899 Other long term (current) drug therapy; Y04.0XXA Assault by unarmed brawl or fight, initial encounter
CPT/HCPCS: 73000; 73030; 96372; 99283; J1885

== ENCOUNTER 2017-10-26 11:28 | Day surgery (SDC) | payer MEDICAID ==
[2017-10-26] MEDS ORDERED: Midazolam 1 MG/ML 2 ML SDV ONE (12:10)
[2017-10-26] MEDS ORDERED: Ondansetron 4 MG/2 ML SDV ONE (12:10)
[2017-10-26] MEDS ORDERED: Succinylcholine 200 MG/10 ML MDV ONE (12:10)
[2017-10-26] MEDS ORDERED: Dexamethasone 4 MG/ML 5 ML MDV ONE (12:10)
[2017-10-26] MEDS ORDERED: Propofol 200 MG/20 ML SDV ONE (12:10)
[2017-10-26] MEDS ORDERED: fentaNYL 250 MCG/5 ML SDV ONE (12:10)
[2017-10-26] MEDS ORDERED: Rocuronium 10 MG/ML 10 ML Syringe ONE (12:10)
--- NOTE | 2017-10-26 12:17 | PCM.PREANE ---
Preanesthetic Assessment - Procedure Proposed Procedure: left clavicle repair - Anesthesia/Transfusion/Family Hx Anesthesia History: Prior Anesthesia Without Reaction Family History of Anesthesia Reaction: No Transfusion History: No Prior Transfusion(s) - Review of Systems General: Other (pain due to fracture) Pulmonary: Other (smoker) Cardiovascular: No Symptoms Gastrointestinal: No Symptoms Neurological: Pre-Existing Deficit (left clavicle area pain) - Physical Assessment NPO Status Date: 10/25/17 NPO Status Time: 22:00 O2 Sat by Pulse Oximetry: 100 Respiratory Rate: 16 Vital Signs: Last Vital Signs Temp 94.3 F L 10/26/17 11:45 Pulse 93 10/26/17 11:45 Resp 16 10/26/17 11:45 BP 124/82 10/26/17 11:45 Pulse Ox 100 10/26/17 11:45 Height: 5 ft 4 in Weight: 135 lb ASA Class: 2 Mental Status: Alert & Oriented x3 Airway Class: Mallampati = 1 Dentition: Reports: Normal Dentition Thyro-Mental Finger Breadths: 3 Mouth Opening Finger Breadths: 3 ROM/Head Extension: Limited/Partial Lungs: Clear to Auscultation, Normal Respiratory Effort Cardiovascular: Regular Rate, Regular Rhythm, No Murmurs - Allergies Allergies/Adverse Reactions: Allergies Allergy/AdvReac Type Severity Reaction Status Date / Time No Known Allergies Allergy Verified 10/23/17 07:12 - Blood Blood Available: No Product(s) Available: None - Anesthesia Plan Pre-Op Medication Ordered: None - Acknowledgements Anesthesia Type Planned: General Anesthesia (OET) Pt an Appropriate Candidate for the Planned Anesthesia: Yes Alternatives and Risks of Anesthesia Discussed w Pt/Guardian: Yes Pt/Guardian Understands and Agrees with Anesthesia Plan: Yes PreAnesthesia Questionnaire HEENT History: Reports: None Cardiovascular History: Reports: None Respiratory History: Reports: None Gastrointestinal History: Reports: Hemorrhoids Genitourinary History: Reports: None ART HANDLER 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: Reports: None Musculoskeletal History: Reports: None Neurological History: Reports: None Psychiatric History: Reports: Anxiety, Depression, Other (See Below) Other Psychiatric History: Narcolepsy Endocrine/Metabolic History: Reports: None Hematologic History: Reports: None Immunologic History: Reports: None Oncologic (Cancer) History: Reports: None Dermatologic History: Reports: None - Past Surgical History Head Surgeries/Procedures: Reports: None HEENT Surgical History: Reports: None Cardiovascular Surgical History: Reports: None Respiratory Surgical History: Reports: None GI Surgical History: Reports: Appendectomy, Colonoscopy Other GI Surgeries/Procedures: hemorrhoidectomy Female Surgical History: Reports: Salpingo-Oophorectomy, Tubal Ligation Other Female Surgeries/Procedures: right salpingectomy Endocrine Surgical History: Reports: None Neurological Surgical History: Reports: None Musculoskeletal Surgical History: Reports: None Oncologic Surgical History: Reports: None - SUBSTANCE USE Smoking Status *Q: Former Smoker Tobacco Use Within Last Twelve Months: Cigarettes Recreational Drug Use History: No - HOME MEDS Home Medications: Home Meds ALPRAZolam [Xanax] 0.5 mg PO ASDIRECTED PRN MDD 1.5 mg 05/22/16 [History] buPROPion [Wellbutrin XL] 150 mg PO DAILY 05/22/16 [History] Hydrocodone/Acetaminophen [Hydrocodon-Acetaminophen 5-325] 1 - 2 tab PO ASDIRECTED PRN 10/23/17 [History] Methylphenidate HCl [Concerta] 36 g PO DAILY 10/23/17 [History] - CURRENT (IN HOUSE) MEDS Current Meds: Current Medications Lactated Ringer's (Ringers, Lactated) 1,000 mls @ 100 mls/hr IV ASDIRECTED GILDA
[2017-10-26] MEDS ORDERED: Thrombin (Bovine) 5,000 Unit Kit ONE (13:06)
[2017-10-26] MEDS ORDERED: Gelatin Sponge,Absorbable 12-7 mm Sponge TOP ONE (13:06)
[2017-10-26] MEDS ORDERED: Bupivacaine 0.25%/EPINEPHrine 1:200,000 10 ML SDV ONE (13:06)
[2017-10-26] MEDS: Lactated Ringers 1,000 ML IV SCH ×2 (13:15→22:54)
[2017-10-26] MEDS ORDERED: Sodium Chloride 0.9% 10 ML Syringe FLUSH PRN (13:16)
[2017-10-26] MEDS ORDERED: ceFAZolin 1 GM in Premix Bag 1 BAG IV ONE (13:16)
[2017-10-26] MEDS ORDERED: Sodium Chloride 0.9% 2.5 ML Syringe FLUSH PRN (13:16)
[2017-10-26] MEDS ORDERED: Glycopyrrolate 0.2 MG/ML SDV ONE (14:48)
[2017-10-26] MEDS ORDERED: Neostigmine Methylsulfate 1 MG/ML 5 ML Syringe ONE (14:48)
--- NOTE | 2017-10-26 16:20 | PCM.OPNOTE ---
- General Post-Op/Procedure Note Date of Surgery/Procedure: 10/26/17 Operative Procedure(s): ORIF left clavicle with ICBG Post-Op Diagnosis: Nonunion left clavicle Anesthesia Technique: General ET Tube Primary Surgeon: Sarah Nair Honing Machine Operator Tool: Heather Munoz Honing Machine Operator Tool: José Sherman in mLs: 50 Condition: Good Free Text/Narrative:: #[id number]
[2017-10-26] MEDS ORDERED: Ketorolac 30 MG/ML SDV ONE (16:21)
[2017-10-26] MEDS ORDERED: Acetaminophen/HYDROcodone 325-10 MG Tab PO PRN (16:22)
[2017-10-26] MEDS ORDERED: HYDROmorphone 1 MG/ML Syringe IVPUSH PRN (16:22)
[2017-10-26] MEDS ORDERED: fentaNYL 100 MCG/2 ML SDV IVPUSH PRN (16:25)
[2017-10-26] MEDS: HYDROmorphone 2 MG/ML SDV ONE ×2 (16:44→16:53)
--- NOTE | 2017-10-26 16:57 | PCM.POSTAN ---
POST ANESTHESIA ASSESSMENT - MENTAL STATUS Mental Status: Alert - VITAL SIGNS Pulse Rate: 82 SaO2: 96 Resp Rate: 16 Blood Pressure: 129/91 Temperature: 36.6 C - RESPIRATORY Respiratory Status: Respiratory Rate WNL - CARDIOVASCULAR CV Status: Pulse Rate WNL - GASTROINTESTINAL GI Status: No Symptoms - PAIN Pain Score: 2 (Dilaudid 2mg Ofirmev 1000mg in Recovery) Free Text/Narrative:: Pain significantly less following Dilaudid and Ofirmev. - POST OP HYDRATION Hydration Status: Adequate & Stable (Status adequate to return to floor)
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
[2017-10-26] MEDS: Ketorolac 30 MG/ML SDV IVPUSH SCH ×2 (17:36→21:52)
[2017-10-26] MEDS: Acetaminophen/HYDROcodone 325-10 MG Tab PO PRN ×2 (17:53→22:07)
[2017-10-26] MEDS ORDERED: diphenhydrAMINE 25 MG Cap PO PRN (18:30)
[2017-10-26] MEDS: Ondansetron 4 MG/2 ML SDV IV PRN (19:23)
[2017-10-26] MEDS: Docusate Sodium 100 MG Cap PO SCH (21:51)
[2017-10-27] MEDS: Acetaminophen/HYDROcodone 325-10 MG Tab PO PRN ×3 (02:22→10:44)
[2017-10-27] MEDS: Ketorolac 30 MG/ML SDV IVPUSH SCH ×2 (04:25→09:49)
[2017-10-27] MEDS: Ondansetron 4 MG/2 ML SDV IV PRN (04:30)
--- NOTE | 2017-10-27 06:35 | PCM48HPAN ---
Post Anesthesia Note - EVALUATION WITHIN 48HRS OF ANESTHETIC Vital Signs in Normal Range: Yes Patient Participated in Evaluation: Yes Respiratory Function Stable: Yes Airway Patent: Yes Cardiovascular Function Stable: Yes Hydration Status Stable: Yes Pain Control Satisfactory: Yes (Using oral meds and Toradol) Nausea and Vomiting Control Satisfactory: Yes (Zofran X1) Mental Status Recovered: Yes Pulse Rate: 82 SaO2: 94 Resp Rate: 17 Temperature: 36.4 C Blood Pressure: 118/64 - COMMENTS/OBSERVATIONS Free Text/Narrative:: Doing well. Progressing as expected.
[2017-10-27] MEDS ORDERED: Sodium Chloride 0.9% 10 ML Syringe FLUSH PRN (08:14)
[2017-10-27] MEDS ORDERED: Sodium Chloride 0.9% 2.5 ML Syringe FLUSH PRN (08:14)
[2017-10-27] MEDS: Docusate Sodium 100 MG Cap PO SCH (09:26)
--- NOTE | 2017-10-27 10:01 | PCM.SURGPN ---
- General Info Date of Service: 10/27/17 Date of Surgery/Procedure: 10/26/17 POD#: 1 Functional Status: Reports: Pain Controlled, Tolerating Diet, Ambulating, Urinating - Review of Systems General: Reports: No Symptoms Pulmonary: Reports: No Symptoms Cardiovascular: Reports: No Symptoms Gastrointestinal: Reports: No Symptoms Musculoskeletal: Reports: Arm Pain Systems Review Comment:: pt up in bed for breakfast tolerating PO intake pain tolerable would like to go home this afternoon - Patient Data Vitals - Most Recent: Last Vital Signs Temp 97.5 F 10/27/17 06:35 Pulse 82 10/27/17 06:35 Resp 17 10/27/17 06:35 BP 118/64 10/27/17 06:35 Pulse Ox 94 L 10/27/17 06:35 Weight - Most Recent: 61.235 kg I&O - Last 24 Hours: Intake & Output 10/26/17 10/27/17 10/27/17 22:59 06:59 14:59 Intake Total 1300 750 Output Total 300 Balance 1300 450 Med Orders - Current: Current Medications Hydrocodone Bitart/Acetaminophen (Zurich 325-10 Mg) 1 - 2 tab PO Q4H PRN PRN Reason: Pain Last Admin: 10/27/17 06:48 Dose: 2 tab Diphenhydramine HCl (Benadryl) 25 mg PO Q6H PRN PRN Reason: itchiness Last Admin: 10/26/17 18:53 Dose: 25 mg Docusate Sodium (Colace) 100 mg PO BID [facility] Last Admin: 10/27/17 09:26 Dose: 100 mg Hydromorphone HCl (Dilaudid) 0.5 - 1 mg IVPUSH Q3H PRN PRN Reason: Pain Lactated Ringer's (Ringers, Lactated) 1,000 mls @ 100 mls/hr IV ASDIRECTED [facility] Last Admin: 10/26/17 22:54 Dose: 100 mls/hr Ketorolac Tromethamine (Toradol) 30 mg IVPUSH Q6H [facility] Last Admin: 10/27/17 09:49 Dose: 30 mg Ondansetron HCl (Zofran) 4 mg IV Q6HR PRN PRN Reason: NAUSEA/VOMITING Last Admin: 10/27/17 04:30 Dose: 4 mg Sodium Chloride (Saline Flush) 10 ml FLUSH ASDIRECTED PRN PRN Reason: Keep Vein Open Sodium Chloride (Saline Flush) 2.5 ml FLUSH ASDIRECTED PRN PRN Reason: Keep Vein Open Sodium Chloride (Saline Flush) 10 ml FLUSH ASDIRECTED PRN PRN Reason: Keep Vein Open Sodium Chloride (Saline Flush) 2.5 ml FLUSH ASDIRECTED PRN PRN Reason: Keep Vein Open Discontinued Medications Hydrocodone Bitart/Acetaminophen (Zurich 325-10 Mg) 1 - 2 tab PO Q4H PRN PRN Reason: Pain Bupivacaine HCl/Epinephrine Bitart (Marcaine 0.25%/Epinephrine 1:200,000) Confirm Administered Dose 20 ml .ROUTE .STK-MED ONE Stop: 10/26/17 13:07 Dexamethasone (Dexamethasone) Confirm Administered Dose 20 mg .ROUTE .STK-MED ONE Stop: 10/26/17 12:11 Fentanyl (Sublimaze) Confirm Administered Dose 250 mcg .ROUTE .STK-MED ONE Stop: 10/26/17 12:11 Fentanyl (Sublimaze) 50 mcg IVPUSH Q5M PRN PRN Reason: Pain (moderate 4-6) Stop: 10/26/17 18:00 Gelatin (Gelfoam 12-7 Mm) Confirm Administered Dose 1 each TOP .STK-MED ONE Stop: 10/26/17 13:07 Glycopyrrolate (Robinul) Confirm Administered Dose 0.4 mg .ROUTE .STK-MED ONE Stop: 10/26/17 14:49 Hydromorphone HCl (Dilaudid) Confirm Administered Dose 2 mg .ROUTE .STK-MED ONE Stop: 10/26/17 16:43 Last Admin: 10/26/17 16:53 Dose: 1 mg Lidocaine HCl (Xylocaine-Mpf 1%) Confirm Administered Dose 5 mls @ as directed .ROUTE .STK-MED ONE Stop: 10/26/17 12:11 Cefazolin Sodium/Dextrose 1 gm (/ Premix) 50 mls @ 100 mls/hr IV ONETIME ONE Stop: 10/26/17 13:45 Last Admin: 10/26/17 17:36 Dose: Not Given Cefazolin Sodium/Dextrose (Ancef) Confirm Administered Dose 50 mls @ as directed .ROUTE .STK-MED ONE Stop: 10/26/17 13:45 Acetaminophen (Ofirmev) Confirm Administered Dose 100 mls @ as directed IV .STK- MED ONE Stop: 10/26/17 16:44 Ketorolac Tromethamine (Toradol) Confirm Administered Dose 30 mg .ROUTE .STK- MED ONE Stop: 10/26/17 16:22 Midazolam HCl (Versed 1 Mg/Ml) Confirm Administered Dose 2 mg .ROUTE .STK-MED ONE Stop: 10/26/17 12:11 Neostigmine Methylsulfate (Neostigmine) Confirm Administered Dose 5 mg .ROUTE .STK-MED ONE Stop: 10/26/17 14:49 Ondansetron HCl (Zofran) Confirm Administered Dose 4 mg .ROUTE .STK-MED ONE Stop: 10/26/17 12:11 Propofol (Diprivan 20 Ml) Confirm Administered Dose 200 mg .ROUTE .STK-MED ONE Stop: 10/26/17 12:11 Rocuronium [place] (Zemuron) Confirm Administered Dose 100 mg .ROUTE .STK-MED ONE Stop: 10/26/17 12:11 Succinylcholine Chloride (Quelicin) Confirm Administered Dose 200 mg .ROUTE .STK -MED ONE Stop: 10/26/17 12:11 Thrombin (Thrombin-Jmi) Confirm Administered Dose 5,000 unit .ROUTE .STK-MED ONE Stop: 10/26/17 13:07 - Exam Wound/Incisions: Dressing Dry and Intact. No: Drainage, Erythema General: Alert, Oriented Cardiovascular: Regular Rate, Regular Rhythm Extremities: Other (exam LUE, bulky dressing clean/dry, AIN/PIN/ulnar motor intact, radial/ulnar/median sensation intact, radial pulse 2+. L hip dressing clean/dry, no drainage erythema. ) Physical Findings Comment:: vss, afeb uo 300+mL - Problem List & Annotations (1) Fracture of clavicle SNOMED Code(s): 46869497 Code(s): S42.009A - FRACTURE OF UNSP PART OF UNSP CLAVICLE, INIT FOR CLOS FX Status: Acute Current Visit: No - Problem List Review Problem List Initiated/Reviewed/Updated: Yes - My Orders Last 24 Hours: Active Orders 24 hr Category Date Time Status Patient Status [ADT] Routine ADT 10/26/17 13:16 Active Transfer Patient (Change bed) [ADT] Routine ADT 10/26/17 16:23 Ordered Neurovascular Check [RC] Q4HR Care 10/26/17 16:25 Active Vital Signs [RC] Q4H Care 10/26/17 16:25 Active Regular Diet [DIET] Diet 10/26/17 Dinner Active Fluoro>1Hr [CR] Routine Exams 10/26/17 14:00 Taken Acetaminophen/HYDROcodone [Zurich 325-10 MG] Med 10/26/17 13:16 Active 1 - 2 tab PO Q4H PRN Docusate Sodium [Colace] Med 10/26/17 21:00 Active 100 mg PO BID HYDROmorphone [Dilaudid] Med 10/26/17 16:22 Active 0.5 - 1 mg IVPUSH Q3H PRN Ketorolac [Toradol] Med 10/26/17 16:30 Active 30 mg IVPUSH Q6H Lactated Ringers [Ringers, Lactated] 1,000 ml Med 10/26/17 12:15 Active IV ASDIRECTED Ondansetron [Zofran] Med 10/26/17 16:22 Active 4 mg IV Q6HR PRN Sodium Chloride 0.9% [Saline Flush] Med 10/26/17 13:16 Active 10 ml FLUSH ASDIRECTED PRN Sodium Chloride 0.9% [Saline Flush] Med 10/27/17 08:14 Active 10 ml FLUSH ASDIRECTED PRN Sodium Chloride 0.9% [Saline Flush] Med 10/26/17 13:16 Active 2.5 ml FLUSH ASDIRECTED PRN Sodium Chloride 0.9% [Saline Flush] Med 10/27/17 08:14 Active 2.5 ml FLUSH ASDIRECTED PRN diphenhydrAMINE [Benadryl] Med 10/26/17 18:30 Active 25 mg PO Q6H PRN Convert IV to Saline Lock [OM.PC] Routine Oth 10/27/17 08:14 Ordered Obtain Home Medication List [OM.PC] Routine Oth 10/26/17 16:24 Ordered Peripheral IV Insertion Adult [OM.PC] Urgent Oth 10/26/17 13:16 Ordered Sequential Compression Device [OM.PC] Routine Oth 10/26/17 13:16 Ordered Medication Orders Hydrocodone Bitart/Acetaminophen (Zurich 325-10 Mg) 1 - 2 tab PO Q4H PRN PRN Reason: Pain Last Admin: 10/27/17 06:48 Dose: 2 tab Admin: 10/27/17 02:22 Dose: 2 tab Admin: 10/26/17 22:07 Dose: 2 tab Admin: 10/26/17 17:53 Dose: 2 tab Diphenhydramine HCl (Benadryl) 25 mg PO Q6H PRN PRN Reason: itchiness Last Admin: 10/26/17 18:53 Dose: 25 mg Docusate Sodium (Colace) 100 mg PO BID [facility] Last Admin: 10/27/17 09:26 Dose: 100 mg Admin: 10/26/17 21:51 Dose: 100 mg Hydromorphone HCl (Dilaudid) 0.5 - 1 mg IVPUSH Q3H PRN PRN Reason: Pain Lactated Ringer's (Ringers, Lactated) 1,000 mls @ 100 mls/hr IV ASDIRECTED [facility] Last Admin: 10/26/17 22:54 Dose: 100 mls/hr Infusion: 10/26/17 22:54 Dose: 100 mls/hr Admin: 10/26/17 13:15 Dose: 100 mls/hr Ketorolac Tromethamine (Toradol) 30 mg IVPUSH Q6H [facility] Last Admin: 10/27/17 09:49 Dose: 30 mg Admin: 10/27/17 04:25 Dose: 30 mg Admin: 10/26/17 21:52 Dose: 30 mg Admin: 10/26/17 17:36 Dose: Ondansetron HCl (Zofran) 4 mg IV Q6HR PRN PRN Reason: NAUSEA/VOMITING Last Admin: 10/27/17 04:30 Dose: 4 mg Admin: 10/26/17 19:23 Dose: 4 mg Sodium Chloride (Saline Flush) 10 ml FLUSH ASDIRECTED PRN PRN Reason: Keep Vein Open Sodium Chloride (Saline Flush) 2.5 ml FLUSH ASDIRECTED PRN PRN Reason: Keep Vein Open Sodium Chloride (Saline Flush) 10 ml FLUSH ASDIRECTED PRN PRN Reason: Keep Vein Open Sodium Chloride (Saline Flush) 2.5 ml FLUSH ASDIRECTED PRN PRN Reason: Keep Vein Open - Assessment Assessment (Free Text/Narrative):: POD#1 ORIF L clavicle nonunion with ICBG - Plan Plan (Free Text/Narrative):: continue pain management dressing instructions discussed with patient ROM/WB restrictions discussed will d/ch to home today pt verbalizes understanding and agrees.
--- NOTE | 2017-10-27 11:33 | CR ---
EXAMINATION: Left shoulder HISTORY: ORIF COMPARISON: Radiographs dated 10/01/2017 TECHNIQUE: 2 views FINDINGS/IMPRESSION: Operative control films demonstrate screw and plate fixation of a mid left clavi argenis fracture.
[2017-10-27 12:38] VITALS: BP 101/60
== END 2017-10-27 12:45 | disposition home or self-care (01) ==
LOC: MW.SDS 11:28 → MW.MS 17:12 → MW.SDS 10-27 12:45
PROVIDERS: ATTEND Orthopaedic Surgery
DX: S42.012K Anterior displaced fracture of sternal end of left clavicle, subsequent encounter for fracture with nonunion (principal); F41.9 Anxiety disorder, unspecified; F32.9 Major depressive disorder, single episode, unspecified; Z87.891 Personal history of nicotine dependence; Z79.899 Other long term (current) drug therapy; X58.XXXD Exposure to other specified factors, subsequent encounter
CPT/HCPCS: 23485; 76001; A9270; J0131; J0330; J0690; J1100; J1170; J1885; J2250; J2405; J2704; J3010; J3490; J7120; 00450